=== PATIENT | female | born 1930 | race Caucasian/White ===

== ENCOUNTER → 2017-11-17 | Outpatient (REF) | payer MEDICARE ==
[~2017-11-17] MED LIST: ACET-1966 PO; ALP25 PO; ASC500 PO; ASPI-1441 PO; ASPI81TA94 PO; CALC-947 PO; CIP500 PO; DAR100 PO; DILT180C4 PO; DILT360C26 PO; DILT360C49 PO; DOCU240C84 PO; FAM20 PO; FURO20TA19 PO; GLUC-283 PO; HCTZ25 PO; IBU800 PO; LIS10 PO; LIS20 PO; LISI-362 PO; LOR5/325 PO; MOM PO; NAPR-723 PO; OXYC-854 PO; PER PO; PHEN57OI RC; PHENA200 PO; POLY17PO25 PO; POTA10CA40 PO; POTASSIUM PO; POTT20 PO; ROSU5TAB8 PO; WARF3TAB35 PO; [UNRECOGNIZED DRUG - CODE]; [UNRECOGNIZED DRUG - CODE] PO
== END ==
LOC: ZZSENDIN 12:18
PROVIDERS: ATTEND Physician Assistant
DX: R06.00 Dyspnea, unspecified (principal)
CPT/HCPCS: 83880

== ENCOUNTER 2018-05-06 13:45 | Outpatient (RCR) | payer MEDICARE ==
--- NOTE | 2018-02-09 16:46 | PT INITIAL EVALUATION ---
MEDICAL DIAGNOSIS: Lumbar spondylarthritis TREATMENT DIAGNOSIS: Same, altered gait and balance DATE OF ONSET: 01/21/17 SUBJECTIVE: Katharine Cain presents to PT for lumbar weakness limiting ambulation, standing tolerance, chronic in nature but worsening over the last year. She denies LBP except with shopping occasionally. Pain location is L-S and described as ache. Pain scale is 2/10 with shopping with upright posture and better with flexion, elastic lumbar wrap. REHAB PROBLEM LIST: Decreased ROM Decreased Strength Impaired Transfers Decreased Endurance Decreased Balance Decreased Mobility Decreased Gait PREVIOUS MEDICAL HISTORY: L KAT, R TKA, cholecystectomy, B mastectomies (non- cancerous), lumbar laminectomy with staph infection, hysterectomy, rectocele, urinary incontinence. OCCUPATION: Retired. Lives on main floor of her house, stands 1-2 minutes then needs to sit when cooking, doing laundry. She uses a walker in her home and a rollator with community ambulation. OBJECTIVE: Posture: Long R LE, ~1 inch, heels 12" apart, stands 1 minutes, R malleolar exostosis medially and laterally, upper lumbar convex scoliosis. ROM: LE PROM WNL except ankles 0 deg. Strength: Hip abductors, calves 2/5, B, quads 4+/5 B. Core strength 2/5. Special Tests: Negative SLR, B. Mobility: Difficulty raising LE's onto mat table with sit to sidelie. Gait: Tinetti Gait and Balance 17, a high fall risk. Katharine ambulates 8 feet independently with stiff LE's, WS trunk and R hip hiking instead of hip/knee flexion, feet not leaving the floor and minimal step advancement B. SPC gait with less trunk sway but minimal step advancement, feet not leaving the floor, foot flat pattern. Rollator gait with trunk flexed 30 degrees, knee/hip flexion with minimal heel off, foot flat pattern, feet not clearing the floor and almost pass each other, R trunk lean in R stance. Balance: Steady static stand 1 minute, unsteady turning L and R. ASSESSMENT: Katharine Cain presents with weak core and LE's affecting gait endurance, high fall risk. She did well with core and LE strengthening today. I feel she is a candidate to improve gait to SPC with community ambulation. Short Term Goals One month: Katharine reports she can stand 10 minutes while cooking. Two months: Katharine reports she can ambulate through [facility] with a standard shopping cart with back fatigue minimal, Tinetti Gait and Balance 21 points. Patient's Goals Strengthen back to tolerate standing 15 to 20 minutes, shop with minimal lumbar muscle fatigue. PLAN: Patient to be seen for Strengthening/condition, Range of Motion/ Stretching, Spinal Stabilization, Neuromuscular Re-ed, Posture/Body mechanics, Gait Trg/Balance Trg, Home Exercise Program 2x/Week for 2 Months Thank you for this referral. If you have any questions, comments, or concerns about this report or plan, please contact me at . [facility]
--- NOTE | 2018-03-25 17:24 | PT PLAN OF CARE ---
Physician: Dr. Oswaldo Martinez Patient is being seen: 2x/week Therapist: Lis Lee, PT Medical Diagnosis: Lumbar spondylarthritis Treatment Diagnosis: Same, altered gait and balance Date of Onset: 01/21/17 Date of Initial Evaluation: 02/09/18 Date patient was last seen: 03/25/18 Number of treatments: 10 Number of cancellations/No shows: 0 INTERVENTIONS: Strengthening/condition Range of Motion Spinal Stabilization Stretching Home Exercise Program GOALS: One month: Katharine reports she can stand 10 minutes while cooking. (met) Two months: Katharine reports she can ambulate through [facility] with a standard shopping cart with back fatigue minimal (met), Tinetti Gait and Balance 21 points (progressing, 18 points). PATIENT'S GOAL: Strengthen back to tolerate standing 15 to 20 minutes (progressing), shop with minimal lumbar muscle fatigue (met). Patient Compliance: Excellent Prognosis: Excellent Reasons for continuing therapy: S: Katharine relates she can stand 10 min. in the kitchen, has lumbar fatigue with shopping at [employer], but that's improving. Posture: Long R LE, ~1 inch, heels 12" apart, stands 1 minutes, R malleolar exostosis medially and laterally, upper lumbar convex scoliosis. ROM: PROM ankles 10 deg. Gait/balance: Tinetti Gait and Assessment improved to 18, a high fall risk. Rocky now ambulates independently with B trunk lean over RLE due to weak hip abductors. Mobility: Sit<>stand without UE use with immediate standing balance. A/P: Katharine Cain is improving her functional strength, gait and can benefit from continued PT to improve back strength for shopping, standing. If you agree , we'll continue through March to goals set. Thank you. KULDEEP
--- NOTE | 2018-05-04 14:43 | PT PLAN OF CARE ---
Physician: Dr. Oswaldo Martinez Patient is being seen: 2x/week Therapist: Lis Lee, PT Medical Diagnosis: Lumbar spondylarthritis Treatment Diagnosis: Same, altered gait and balance Date of Onset: 01/21/17 Date of Initial Evaluation: 02/09/18 Date patient was last seen: 05/04/18 Number of treatments: 20 Number of cancellations/No shows: 0 INTERVENTIONS: Strengthening/condition, Range of Motion/Stretching, Spinal Stabilization, Gait Trg/Balance Trg GOALS: One month: Katharine reports she can stand 10 minutes while cooking. (met) Two months: Katharine reports she can ambulate through [facility] with a standard shopping cart with back fatigue minimal (met), Tinetti Gait and Balance 21 points (met, 22 points). PATIENT'S GOAL: Strengthen back to tolerate standing 15 to 20 minutes (progressing), shop with minimal lumbar muscle fatigue (met). Patient Compliance: Excellent Prognosis: Excellent Reasons for continuing therapy: S: Katharine relates she shopped for furniture at one store yesterday and LBP became 7/10. She relates her standing time is still 5 minutes and she would like to become stronger for more standing while cooking, laundry. Posture: Long R LE, ~1 inch, heels 12" apart, stands 3 minutes. ROM: Ankles PROM 15 deg. Strength: Hip abductors 3/5, calves 2/5, B, quads 4+/5 B. Core strength 3/5. Gait/balance: Tinetti Gait and Balance improved to 22, a fall risk. Katharine can now turn 180, 360 degrees with steady stepping, mild balance disturbances. She ambulates with feet clearing lois floor, not passing each other, but O2 drops today between 86 and 88%, HR low 80's. Static stand, eyes closed is now steady. Mobility: Easily lifts LE's onto mat table with sit to sidelie. A/P: Katharine Cain is reducing fall risk, but needs more conditioning and strengthening. If you agree, I'd like her to continue through May 2x/week to work on this for both back pain reduction and standing tolerance. Thank you. KULDEEP
== END 2018-05-10 ==
LOC: PT 13:45
PROVIDERS: ATTEND Family Medicine
DX: M43.06 Spondylolysis, lumbar region (principal); R26.89 Other abnormalities of gait and mobility; Z96.642 Presence of left artificial hip joint; Z96.651 Presence of right artificial knee joint; Z90.49 Acquired absence of other specified parts of digestive tract; Z90.13 Acquired absence of bilateral breasts and nipples; Z98.1 Arthrodesis status
CPT/HCPCS: 97162

== ENCOUNTER → 2018-07-04 | Outpatient (CLI) | payer MEDICARE ==
--- NOTE | 2018-07-04 16:34 | RADIOLOGY IMAGING REPORT ---
FACILITY: [facility] - [place] PATIENT NAME: Katharine Cain : 1930 MR: [id number] V: [id number] EXAM DATE: ORDERING PHYSICIAN: CALVIN TEJADA TECHNOLOGIST: Location: [facility] - [place], [place] Patient: Katharine Cain : 1930 Visit/Account:[id number] Date of Sevice: 07/04/2018 Lumbar spine 3 views: HISTORY: Low back pain, back surgery 11 years ago. COMPARISON: None FINDINGS: There is mild lumbar scoliosis convex to the left. Laminectomy defect noted at L4 and L5. Does appear to be a transitional vertebra at the lumbosacral junction. There is severe disc space n arrowing at all lumbar levels with the exception of L4-5 where disc space narrowing is moderate to se roni. There are large anterior and lateral osteophytes. Multilevel facet arthropathy is present whi ch appears to be moderate to severe. There is mild flattening of the superior endplate of L2 and L4, these changes may be chronic. There is no definite acute compression deformity. Extensive atherosclerotic changes are present in the aorta and iliac vessels. Left hip prosthesis is in place. Bones are osteopenic. IMPRESSION: 1. Moderate to severe multilevel spondylitic changes as well as facet arthropathy as described above . 2. Postsurgical changes L4 and L5. 3. No definitive findings of acute osseous abnormality. Report Dictated By: Patricia Balbuena MD at 07/04/2018 4:23 PM Report E-Signed By: Patricia Balbuena MD at 07/04/2018 4:29 PM WSN:[id number]
== END ==
LOC: RAD 15:13
PROVIDERS: ATTEND Family Medicine
DX: M47.896 Other spondylosis, lumbar region (principal); Z98.890 Other specified postprocedural states
CPT/HCPCS: 72100

== ENCOUNTER 2018-07-08 13:45 | Outpatient (RCR) | payer MEDICARE ==
--- NOTE | 2018-05-11 14:49 | PT PLAN OF CARE ---
Physician: Dr. Oswaldo Martinez 3 month Business Office note Patient is being seen: 2x/week Therapist: Lis Lee, PT Medical Diagnosis: Lumbar spondylarthritis Treatment Diagnosis: Same, altered gait and balance Date of Onset: 01/21/17 Date of Initial Evaluation: 02/09/18 Date patient was last seen: 05/11/18 Number of treatments: 22 Number of cancellations/No shows: 0 INTERVENTIONS: Strengthening/condition, Range of Motion/Stretching, Spinal Stabilization, Gait Trg/Balance Trg GOALS: One month: Katharine reports she can stand 10 minutes while cooking. (met) Two months: Katharine reports she can ambulate through [facility] with a standard shopping cart with back fatigue minimal (met), Tinetti Gait and Balance 21 points (met, 22 points). PATIENT'S GOAL: Strengthen back to tolerate standing 15 to 20 minutes (progressing), shop with minimal lumbar muscle fatigue (met). Patient Compliance: Excellent Prognosis: Excellent Reasons for continuing therapy: This is our 3 month Plan of Care note, two visits after I did the last note for Katharine Cain. S: Katharine relates she is more active with community outings, LBP 2-4/10 some days. O: Posture: Long R LE, ~1 inch, heels 12" apart, stands 3 minutes. ROM: Ankles PROM 15 deg. Strength: Hip abductors 3/5, calves 2/5, B, quads 4+/5 B. Core strength 3/5. Gait/balance: Tinetti Gait and Balance 22, a fall risk. Katharine can now turn 180, 360 degrees with steady stepping, mild Trendelenberg. She ambulates with feet clearing the floor, not passing each other rollator. Static stand, eyes closed is now steady. Sit to stand with immediate standing balance, upright trunk. Mobility: Easily lifts LE's onto mat table with sit to sidelie. A/P: Katharine Cian is reducing fall risk, but needs more conditioning and strengthening. If you agree, I'd like her to continue through May 2x/week to work on this for both back pain reduction and standing tolerance. Thank you. KULDEEP
--- NOTE | 2018-06-23 08:17 | PT PLAN OF CARE ---
Physician: Dr. Oswaldo Martinez Patient is being seen: 2x/week Therapist: Lis Lee, PT Medical Diagnosis: Lumbar spondylarthritis Treatment Diagnosis: Same, altered gait and balance Date of Onset: 01/21/17 Date of Initial Evaluation: 02/09/18 Date patient was last seen: 06/22/18 Number of treatments: 30 Number of cancellations/No shows: 1 INTERVENTIONS: Strengthening/condition Range of Motion Spinal Stabilization Stretching GOALS: One month: Katharine reports she can stand 10 minutes while cooking. (met) Two months: Katharine reports she can ambulate through [facility] with a standard shopping cart with back fatigue minimal (met), Tinetti Gait and Balance 21 points (met, 22 points). PATIENT'S GOAL: Strengthen back to tolerate standing 15 to 20 minutes (not met), shop with minimal lumbar muscle fatigue (met). Patient Compliance: Excellent Prognosis: Excellent Reasons for continuing therapy: S: Katharine was improving function with less LBP until 4 days ago when her R PSIS pain flared, 03/01, no LE symptoms. Her standing is now limited to 5 minutes, she isn't shopping and she's will to try modalities. I asked her is she's open to Dr. Mahmood' injections as he helps a lot of people with PSIS pain with them. She is willing to consider this. Posture: Long R LE, ~1 inch, heels 12" apart, stands 1 minutes, R malleolar exostosis medially and laterally, upper lumbar convex scoliosis. ROM: LE PROM WNL except ankles 0 deg. Strength: Hip abductors and quads now 5-/5 B. Core strength 4/5. Gait: Rollator, leans forward strongly, stops now every 40 feet to rest her back. After e-stim, Katharine was more upright and ambulated quickly with her rollator 80 feet without stopping. Mobility: Difficulty raising R LE onto mat table with sit to sidelie. A/P: Katharine Cain flared her R PSIS area pain for unknown reasons. She did well with e-stim. She may benefit from an injection. Would you consider referring her to Dr. Mahmood for his opinion? If you agree, we'll continue through June to return her to her prior function. Thank you. [facility]
--- NOTE | 2018-07-22 14:31 | PT PLAN OF CARE ---
Physician: Dr. Oswaldo Martinez Patient is being seen: 2x/week Therapist: Lis Lee, PT Medical Diagnosis: Lumbar spondylarthritis Treatment Diagnosis: Same, altered gait and balance Date of Onset: 01/21/17 Date of Initial Evaluation: 02/09/18 Date patient was last seen: 07/22/18 Number of treatments: 34 Number of cancellations/No shows: 7 INTERVENTIONS: Strengthening/condition, Range of Motion/Stretching, Spinal Stabilization, E-stim, Hot pack, Home Exercise Program GOALS: One month: Katharine reports she can stand 10 minutes while cooking. (met) Two months: Katharine reports she can ambulate through [facility] with a standard shopping cart with back fatigue minimal (met), Tinetti Gait and Balance 21 points (met, 22 points). PATIENT'S GOAL: Strengthen back to tolerate standing 15 to 20 minutes (not met), shop with minimal lumbar muscle fatigue (met). Patient Compliance: Good Prognosis: Excellent Reasons for discontinuing therapy: S: Katharine cancelled today, relates she's discharging herself from PT due to the winter weather. She's rated LBP 4-5/10 before e-stim/heat, and 0/10 after e-stim and heat. O: Posture: Long R LE, ~1 inch, heels 8" apart, stands 5 minutes. ROM: LE PROM WNL except ankles 0 deg. Strength: Hip abductors and quads 5-/5 B. Core strength 4/5. Gait: Rollator, leans forward slightly, stops after 171 feet to rest her back. A/P: Katharine Cain did well with exercise and modalities to give LBP relief, but didn't improve standing tolerance beyond 10 minutes. Per her request, I'll DC PT. Thank you. KULDEEP
== END 2018-07-08 18:00 | disposition home or self-care (01) ==
LOC: PT 13:45
PROVIDERS: ATTEND Family Medicine
DX: M43.06 Spondylolysis, lumbar region (principal); R26.89 Other abnormalities of gait and mobility
CPT/HCPCS: 97010; 97110; 97164; G0283

== ENCOUNTER 2019-01-25 13:00 | Outpatient (RCR) | payer MEDICARE ==
--- NOTE | 2018-10-28 17:04 | PT INITIAL EVALUATION ---
MEDICAL DIAGNOSIS: LBP M54.5 TREATMENT DIAGNOSIS: Same DATE OF ONSET: 01/21/17 SUBJECTIVE: Katharine Cain returns to PT for LBP from moderate to severe DDD and facet arthropathy. She stopped attending PT her in June due to the weather. She reports LBP with standing 5 minutes, walking short community distances and transfers (in/out of bed, sit/stand) Oswestry Disability Index 56% impairment. She denies extremity paresthesia. Pain location is L-S and described as ache, weakness. Pain scale is 7/10, worse with standing, walking and better with heat. REHAB PROBLEM LIST: Increased Pain Decreased ROM Impaired Bed Mobility Decreased Strength Impaired Transfers Decreased Balance Decreased Mobility Decreased Gait PREVIOUS MEDICAL HISTORY: L KAT, R TKA, cholecystectomy, B mastectomies (non- cancerous), lumbar laminectomy with staph infection, hysterectomy, rectocele, urinary incontinence. OCCUPATION: Retired, lives on main floor of her house, stands 5 minutes then needs to sit when cooking, doing laundry. She uses a walker in her home and a rollator with community ambulation OBJECTIVE: Posture: L lumbar scoliosis, taller R iliac crest, flattened lumbar curve. ROM: Lumbar AROM flexion WNL, minimal extension. Strength: B hip flexors 4+/5, B quads 4-/5, B hamstrings 4-/5, B ankle DF 5-/5. Palpation: Painful with palpation in the L4/5/S1 paraspinals, with joint springing same levels, severely reduced lower lumbar vertebral and facet mobility. Nontender hip muscles. Special Tests: Negative seated dural stretch. Mobility: Min. assist sit/sidelie, difficulty lifting LE's. Gait: 4ww, feet don't pass each other or clear the floor. Independent gait 2-3 steps with hip hiking instead of WS, B ipsilateral LE. Balance: Double limb support only. Other Objective Findings: O2 with 30 feet ambulation 87%, HR 97. ASSESSMENT: Katharine Cain presents with reduced mobility, joint mobility, standing tolerance, altered gait. She had less LBP after manual therapy and heat. Short Term Goals One month: Katharine stands 10 min. cooking before having to sit because of LBP. Two months: Katharine ambulates 100 yards with 4WW with LBP 2/10, transfers sit to sidelie/supine with LBP 2/10. Patient's Goals Stand longer cooking and less LBP with transfers, walking. PLAN: Patient to be seen for Manual Therapy, Strengthening/condition, Ice/Heat, Range of Motion, Spinal Stabilization, Stretching, Electrical Stim, Posture/Body mechanics, Gait Trg/Balance Trg, Home Exercise Program 2x/Week for 2 Months Thank you for this referral. If you have any questions, comments, or concerns about this report or plan, please contact me at . [facility]
--- NOTE | 2018-12-14 14:52 | PT PLAN OF CARE ---
Physician: Dr. Buzz Mahmood Patient is being seen: 2x/week Therapist: Lis Lee, PT Medical Diagnosis: LBP M54.5 Treatment Diagnosis: Same Date of Onset: 01/21/17 Date of Initial Evaluation: 10/28/18 Date patient was last seen: 12/14/18 Number of treatments: 10 Number of cancellations/No shows: 1 INTERVENTIONS: Therapeutic Exercise, Manual Therapy, Heat, HEP GOALS: One month: Katharine stands 10 min. cooking before having to sit because of LBP. (met) Two months: Katharine ambulates 100 yards with 4WW with LBP 2/10 (progressing), transfers sit to sidelie/supine with LBP 2/10 (progressing). PATIENT'S GOAL: Stand longer cooking (progressing) and less LBP with transfers, walking (progressing). Patient Compliance: Excellent Prognosis: Excellent Reasons for continuing therapy: S: Katharine rates L-S and R posterior hip pain 5/10 with standing 10 minutes, ambulation. PARESH improved from 56% to 31%. O: ROM: Lumbar AROM flexion WNL, 25% extension. Gait: 4WW, BP 125/67, O2 room air 90%, HR 90, 340 feet with one seated rest. Independent gait with B trunk lean over ipsilateral LE due to hip abductor weakness. Palpation: Painful R G. max tendon at the iliac crest and R L4/5/S1 paraspinals. Mobility: Min. assist sit/sidelie, difficulty lifting R LE. Difficulty with bridging due to weakness and BMI. A/P: Katharine Cain is gradually improving standing and walking tolerance, improving pain reduction. She needs more strength and endurance, pain reduction. If you agree, we'll continue 2x/week another 4 weeks to goals set. Thank you. KULDEEP
== END 2019-01-26 ==
LOC: PT 13:00
PROVIDERS: ATTEND Orthopaedic Surgery
DX: M54.5 Low back pain (principal); M62.81 Muscle weakness (generalized); M51.36 Other intervertebral disc degeneration, lumbar region; M49.86 Spondylopathy in diseases classified elsewhere, lumbar region
CPT/HCPCS: 97162

== ENCOUNTER 2019-02-15 13:45 | Outpatient (RCR) | payer MEDICARE ==
--- NOTE | 2019-01-30 14:53 | PT PLAN OF CARE ---
Physician: Dr. Buzz Mahmood Patient is being seen: 2x/week Therapist: Lis Lee, PT Medical Diagnosis: LBP M54.5 Treatment Diagnosis: Same Date of Onset: 01/21/17 Date of Initial Evaluation: 10/28/18 Date patient was last seen: 01/30/19 Number of treatments: 20 Number of cancellations/No shows: 2 INTERVENTIONS: Strengthening/condition, Spinal Stabilization, Heat GOALS: One month: Katharine stands 10 min. cooking before having to sit because of LBP. (met) Two months: Katharine ambulates 100 yards with 4WW with LBP 2/10 (progressing), transfers sit to sidelie/supine with LBP 2/10 (met). PATIENT'S GOAL: Stand longer cooking (progressing) and less LBP with transfers, walking (progressing). Patient Compliance: Excellent Prognosis: Excellent Reasons for continuing therapy: S: Katharine reports she has less LBP, is standing 10 min. to cook. She still is limited in ambulation with 4WW due to lumbar weakness after about 200 feet. PARESH 37%, was 31%. Posture: L lumbar scoliosis, taller R iliac crest, flattened lumbar curve. ROM: Lumbar AROM flexion WNL, minimal extension. Strength: Core strength 4/5. Gait: 4WW 170 feet then seated rest due to lumbar weakness, O2 87 to 92%. Special Tests: Standing with exercise 15 minutes before having to sit. Mobility: Independent bed mobility, no LBP complaints. A/P: Katharine Cain is improving standing function and needs to improve gait endurance. If you agree, we'll continue through January to goals set. Thank you. KULDEEP
--- NOTE | 2019-02-15 15:31 | PT PLAN OF CARE ---
Physician: Dr. Buzz Mahmood Patient is being seen: 2x/week Therapist: Lis Lee, PT Medical Diagnosis: LBP M54.5 Treatment Diagnosis: Same Date of Onset: 01/21/17 Date of Initial Evaluation: 10/28/18 Date patient was last seen: 02/15/19 Number of treatments: 24 Number of cancellations/No shows: 2 INTERVENTIONS: Strengthening/condition, Spinal Stabilization, Heat, HEP GOALS: One month: Katharine stands 10 min. cooking before having to sit because of LBP. (met) Two months: Katharine ambulates 100 yards with 4WW with LBP 2/10 (met) transfers sit to sidelie/supine with LBP 2/10 (met). PATIENT'S GOAL: Stand longer cooking (partially met) and less LBP with transfers, walking (met). Patient Compliance: Excellent Prognosis: Excellent Reasons for discontinuing therapy: S: Katharine relates she's going to go 2x/week to [employer] exercise classes to continue exercise. PARESH reduced from 31% to 28%. She is standing to cook but leans on the counter occasionally. Posture: L lumbar scoliosis, taller R iliac crest, flattened lumbar curve. ROM: Lumbar AROM flexion WNL, 25% extension. Strength: B hip flexors remain 4+/5, B calves 4/5, otherwise LE's 5/5. Core strength 4/5. Gait: aKtharine walks 170 feet, seated rest, another 170 feet, more than 100 yards total, O2 sats upper 80's to low 90's. Mobility: Katharine has stood 10-15 min. stopping occasionally to lean on the counter. A/P: Katharine Cain has improved her standing endurance, can walk distances with seated rests due to her lumbar OA, and can continue at [facility] with exercise. We've also instructed her in a HEP. I'll DC PT. Thank you. KULDEEP
== END 2019-02-15 18:00 | disposition home or self-care (01) ==
LOC: PT 13:45
PROVIDERS: ATTEND Orthopaedic Surgery
DX: M54.5 Low back pain (principal); M62.81 Muscle weakness (generalized); M51.36 Other intervertebral disc degeneration, lumbar region; M49.86 Spondylopathy in diseases classified elsewhere, lumbar region